=== PATIENT | female | born 1930 | race Caucasian/White ===

== ENCOUNTER → 2017-11-19 | Outpatient (CLI) | payer MEDICARE, BC ==
[~2017-11-19] MED LIST: AMLO-552 PO; AMOX-559 PO; [UNRECOGNIZED DRUG - CODE] PO
[2017-11-19 11:57] LABS: PLATELET COUNT, AUTOMATED 311 K/uL (150-450)
== END ==
LOC: LAB 11:35
PROVIDERS: ATTEND Nurse Practitioner Primary Care
DX: I10 Essential (primary) hypertension (principal)
CPT/HCPCS: 36415; 82040; 82247; 82310; 82374; 82435; 82565; 82947; 84075; 84132; 84155; 84295; 84450; 84460; 84520; 85025; 96361; 96374; 96375

== ENCOUNTER 2018-02-20 10:39 | Emergency (ER) | payer MEDICARE, BC ==
--- NOTE | 2018-02-20 10:55 | ER Report ---
History and Physical Time Seen By MD: 10:54 Hx. of Stated Complaint: PT PRESENTS WITH HX OF BECOMING DIZZY A SHORT TIME AGO, RECENTLY HAS BEEN SLEEPING ALOT HPI/ROS CHIEF COMPLAINT: Dizziness HISTORY OF PRESENT ILLNESS: 87-year-old female patient presents to emergency room with complaint of dizziness. Patient states that she's been dizzy for the last 4 days. She states that is often worse when she is ambulant. Patient states that sometimes it is worse when she stands up. Patient denies any nausea , vomiting or diarrhea. She denies having any fevers. Patient says she's not having changes in her medications. She states that she's not had any other problems. She denies any altered consciousness. Patient's friend states that this been going on, and she is concerned that she is not normally like this. REVIEW OF SYSTEMS: Respiratory: No cough, no dyspnea. Cardiovascular: No chest pain, no palpitations. Gastrointestinal: No vomiting, no abdominal pain. Musculoskeletal: No back pain. Allergies: Coded Allergies: CHRIS Inhibitors (Verified Allergy, Unknown, 02/20/18) Home Meds Active Scripts Scopolamine (Transderm-Scop) 1 Mg/3 Day Patch.td.3, 1 PATCH.72H TD Q3D Y for DIZZINESS, #3 PATCH.72H Prov:MICHAEL MARION PARTNER 02/20/18 Amlodipine Bes/Olmesartan Med (Amlodipine-Olmesartan 10-40 mg) 10 Mg-40 Mg Tablet, 1 TAB PO DAILY, #90 TAB 3 Refills Prov:XIANG DONALD DNP, PARTNER-BC 11/19/17 Past Medical/Surgical History Patient has a past medical history of hypertension, occasional alcohol use. Patient has surgical history of hysterectomy. Reviewed Nurses Notes: Yes Smoking Status: Never Smoker Hx Substance Use Disorder: No Hx Alcohol Use: Yes (OCC) Constitutional Vital Sign - Last 24 Hours 02/20/18 02/20/18 02/20/18 02/20/18 10:45 10:45 11:00 11:30 Temp 97.9 Pulse 87 Resp 20 B/P (MAP) 153/94 (113) 153/94 141/95 (110) 141/82 (101) Pulse Ox 94 O2 Delivery Room Air 02/20/18 02/20/18 02/20/18 02/20/18 11:39 12:09 12:14 12:29 Pulse 79 82 82 79 Resp 21 17 14 Pulse Ox 89 89 89 02/20/18 02/20/18 02/20/18 02/20/18 12:30 12:44 12:59 13:00 Pulse 85 87 Resp 25 13 B/P (MAP) 131/90 (104) 126/82 (97) Pulse Ox 93 93 02/20/18 02/20/18 02/20/18 02/20/18 13:14 13:19 13:24 13:29 Pulse 78 84 79 86 Resp 20 27 21 29 Pulse Ox 94 92 92 94 02/20/18 13:30 B/P (MAP) 145/92 (109) Intake and Output 02/20/18 02/20/18 02/21/18 15:00 23:00 07:00 Output Total 15 ml Balance -15 ml Physical Exam General Appearance: The patient is alert, has no immediate need for airway protection and no current signs of toxicity. ENT: Tympanic membranes are pearly-campos, auditory canals are patent, mucous membranes are moist. Respiratory: Chest is non tender, lungs are clear to auscultation. Cardiac: regular rate and rhythm Gastrointestinal: Abdomen is soft and non tender, no masses, bowel sounds normal. Musculoskeletal: Neck: Neck is supple and non tender. Extremities have full range of motion and are non tender. Skin: No rashes or lesions. Neuro: Patient alert and oriented 4, patient had a negative Trista-Hallpike. DIFFERENTIAL DIAGNOSIS: After history and physical exam differential diagnosis was considered for dizziness including but not limited to peripheral and central causes of vertigo, orthostatic causes including dehydration, and blood loss. Medical Decision Making Data Points Result Diagram: 02/20/18 1115 02/20/18 1115 Laboratory Hematology Test 02/20/18 11:15 02/20/18 12:26 Red Blood Count 4.70 M/uL (4.17-5.56) Mean Corpuscular Volume 92.8 fL (80.0-96.0) Mean Corpuscular Hemoglobin 32.3 pg (26.0-33.0) Mean Corpuscular Hemoglobin Concent 34.9 g/dL (32.0-36.0) Red Cell Distribution Width 12.9 % (11.5-14.5) Mean Platelet Volume 7.8 fL (7.2-11.1) Neutrophils (%) (Auto) 66.5 % (39.4-72.5) Lymphocytes (%) (Auto) 19.7 % (17.6-49.6) Monocytes (%) (Auto) 10.8 % (4.1-12.4) Eosinophils (%) (Auto) 1.9 % (0.4-6.7) Basophils (%) (Auto) 1.1 % (0.3-1.4) Nucleated RBC Relative Count (auto) 0.0 /100WBC Neutrophils # (Auto) 4.8 K/uL (2.0-7.4) Lymphocytes # (Auto) 1.4 K/uL (1.3-3.6) Monocytes # (Auto) 0.8 K/uL (0.3-1.0) Eosinophils # (Auto) 0.1 K/uL (0.0-0.5) Basophils # (Auto) 0.1 K/uL (0.0-0.1) Nucleated RBC Absolute Count (auto) 0.00 K/uL Sodium Level 138 mmol/L (137-145) Potassium Level 4.2 mmol/L (3.5-5.0) Chloride Level 99 mmol/L (98-107) Carbon Dioxide Level 25 mmol/L (22-31) Blood Urea Nitrogen 14 mg/dl (7-18) Creatinine 0.80 mg/dl (0.52-1.04) Glomerular Filtration Rate Calc > 60.0 Random Glucose 101 mg/dl (75-110) Calcium Level 9.8 mg/dl (8.4-10.2) Total Bilirubin 0.7 mg/dl (0.2-1.3) Aspartate Amino Transf (AST/SGOT) 21 U/L (0-35) Alanine Aminotransferase (ALT/SGPT) 17 U/L (0-56) Alkaline Phosphatase 108 U/L (0-126) Troponin I < 0.012 ng/ml Total Protein 8.4 gm/dl (6.3-8.2) Albumin 4.2 g/dl (3.5-5.0) Urine Color Yellow Urine Clarity Clear Urine pH 6.0 pH (4.8-9.5) Urine Specific [place] 1.012 Urine Protein Negative mg/dL (NEGATIVE) Urine Glucose (UA) Negative mg/dL (NEGATIVE) Urine Ketones Trace mg/dL (NEGATIVE) Urine Blood Negative (NEGATIVE) Urine Nitrite Negative (NEGATIVE) Urine Bilirubin Negative (NEGATIVE) Urine Urobilinogen Negative mg/dL (0.2-1.9) Urine Leukocyte Esterase Negative (NEGATIVE) Urine RBC 1 /HPF (0-2/HPF) Urine WBC <1 /HPF (0-5/HPF) Urine Squamous Epithelial Cells None /LPF (NONE-FEW) Urine Bacteria Negative /HPF (NONE-FEW) Urine Mucus Few /HPF (NONE-FEW) Chemistry Test 02/20/18 11:15 02/20/18 12:26 White Blood Count 7.2 k/uL (4.5-11.0) Red Blood Count 4.70 M/uL (4.17-5.56) Hemoglobin 15.2 g/dL (12.0-16.0) Hematocrit 43.6 % (34.0-47.0) Mean Corpuscular Volume 92.8 fL (80.0-96.0) Mean Corpuscular Hemoglobin 32.3 pg (26.0-33.0) Mean Corpuscular Hemoglobin Concent 34.9 g/dL (32.0-36.0) Red Cell Distribution Width 12.9 % (11.5-14.5) Platelet Count 327 K/uL (150-450) Mean Platelet Volume 7.8 fL (7.2-11.1) Neutrophils (%) (Auto) 66.5 % (39.4-72.5) Lymphocytes (%) (Auto) 19.7 % (17.6-49.6) Monocytes (%) (Auto) 10.8 % (4.1-12.4) Eosinophils (%) (Auto) 1.9 % (0.4-6.7) Basophils (%) (Auto) 1.1 % (0.3-1.4) Nucleated RBC Relative Count (auto) 0.0 /100WBC Neutrophils # (Auto) 4.8 K/uL (2.0-7.4) Lymphocytes # (Auto) 1.4 K/uL (1.3-3.6) Monocytes # (Auto) 0.8 K/uL (0.3-1.0) Eosinophils # (Auto) 0.1 K/uL (0.0-0.5) Basophils # (Auto) 0.1 K/uL (0.0-0.1) Nucleated RBC Absolute Count (auto) 0.00 K/uL Glomerular Filtration Rate Calc > 60.0 Calcium Level 9.8 mg/dl (8.4-10.2) Total Bilirubin 0.7 mg/dl (0.2-1.3) Aspartate Amino Transf (AST/SGOT) 21 U/L (0-35) Alanine Aminotransferase (ALT/SGPT) 17 U/L (0-56) Alkaline Phosphatase 108 U/L (0-126) Troponin I < 0.012 ng/ml Total Protein 8.4 gm/dl (6.3-8.2) Albumin 4.2 g/dl (3.5-5.0) Urine Color Yellow Urine Clarity Clear Urine pH 6.0 pH (4.8-9.5) Urine Specific [place] 1.012 Urine Protein Negative mg/dL (NEGATIVE) Urine Glucose (UA) Negative mg/dL (NEGATIVE) Urine Ketones Trace mg/dL (NEGATIVE) Urine Blood Negative (NEGATIVE) Urine Nitrite Negative (NEGATIVE) Urine Bilirubin Negative (NEGATIVE) Urine Urobilinogen Negative mg/dL (0.2-1.9) Urine Leukocyte Esterase Negative (NEGATIVE) Urine RBC 1 /HPF (0-2/HPF) Urine WBC <1 /HPF (0-5/HPF) Urine Squamous Epithelial Cells None /LPF (NONE-FEW) Urine Bacteria Negative /HPF (NONE-FEW) Urine Mucus Few /HPF (NONE-FEW) Urinalysis Test 02/20/18 12:26 Urine Color Yellow Urine Clarity Clear Urine pH 6.0 pH (4.8-9.5) Urine Specific [place] 1.012 Urine Protein Negative mg/dL (NEGATIVE) Urine Glucose (UA) Negative mg/dL (NEGATIVE) Urine Ketones Trace mg/dL (NEGATIVE) Urine Blood Negative (NEGATIVE) Urine Nitrite Negative (NEGATIVE) Urine Bilirubin Negative (NEGATIVE) Urine Urobilinogen Negative mg/dL (0.2-1.9) Urine Leukocyte Esterase Negative (NEGATIVE) Urine RBC 1 /HPF (0-2/HPF) Urine WBC <1 /HPF (0-5/HPF) Urine Squamous Epithelial Cells None /LPF (NONE-FEW) Urine Bacteria Negative /HPF (NONE-FEW) Urine Mucus Few /HPF (NONE-FEW) EKG/Imaging EKG Interpretation 12 lead EKG: Rhythm: normal sinus rhythm [place]: normal QRS: normal ST segments: normal Imaging Examination: CHEST PA AND LAT Comparison: 09/18/2016 History: dizziness Findings: Mild chronic hyperexpansion and interstitial thickening. No new or enlarging consolidation, nodule, or evidence of acute peribronchial inflammation. No pneumothorax, edema, or effusion. Cardiac silhouette size is within normal limits and unchanged. Thoracic aortic atherosclerosis. Thoracolumbar scoliosis as before. IMPRESSION: Unchanged chest with no evidence of acute cardiopulmonary disease. Report Dictated By: Manuelito Mcdowell MD at 02/20/2018 12:32 PM Report E-Signed By: Manuelito Mcdowell MD at 02/20/2018 12:33 PM EXAMINATION: CT Head without intravenous contrast HISTORY: Dizziness. TECHNIQUE: Axial images were obtained from the skull base to the vertex without intravenous contrast. Sagittal and coronal reformatted images are also submitted. One of the following dose optimization techniques was utilized in the performance of this exam: Automated exposure control; adjustment of the mA and/ or kV according to the patient's size; or use of an iterative reconstruction technique. Specific details can be referenced in the facility's radiology CT exam operational policy. COMPARISON: 09/18/2016 FINDINGS: Brain volume: Mild generalized volume loss. Ventricles: Negative. Acute ischemic changes: None. Hemorrhage: None. Masses / edema: None. Campos-white: Negative. White matter: Stable mild to moderate chronic microvascular ischemic changes. Vessels: Negative. Extra-axial: Negative. Calvarium / skull base: Negative. Visualized sinuses / orbits: Extensive mucosal thickening in the paranasal sinuses with complete opacification of the right sphenoid sinus. IMPRESSION: 1. No acute intracranial abnormality. 2. Extensive mucosal thickening in the paranasal sinuses with complete opacification of the right sphenoid sinus. Report Dictated By: Ez Hannah MD at 02/20/2018 12:14 PM Report E-Signed By: Ez Hannah MD at 02/20/2018 12:17 PM ED Course/Re-evaluation ED Course Patient is admitted to examined, history and physical were obtained. Differential diagnoses were considered. On examination lungs are clear, heart was regular. A CBC, CMP, urinalysis, EKG, chest x-ray, CT scan of the head was done. The lab results were unremarkable, EKG showed a normal sinus rhythm with a right bundle branch block, CT scan of the head and chest x-ray were negative. I discussed the findings with the patient and her friend. I believe the dizziness is likely related to perhaps a viral infection of the labyrinth, however the labs to look normal. We will go ahead and try a scopolamine patch. I do have concerns with the patient's age that she may have some adverse reactions. I did discuss this with the patient. She is to remove the patch if she has any problems. She is return to emergency room if her condition worsens. She is follow-up with her primary care provider next week. Patient and her friend both verbalized understanding and agreement with plan. Decision to Disposition Date: Feb 20, 2018 Decision to Disposition Time: 13:21 Depart Departure Latest Vital Signs Vital Signs Date Time Temp Pulse Resp B/P (MAP) Pulse Ox O2 Delivery O2 Flow Rate FiO2 02/20/18 13:30 145/92 (109) 02/20/18 13:29 86 29 94 02/20/18 10:45 97.9 Room Air Impression: Primary Impression: Dizziness Condition: Improved Disposition: HOME OR SELF-CARE New Scripts Scopolamine (Transderm-Scop) 1 Mg/3 Day Patch.td.3 1 PATCH.72H TD Q3D Y for DIZZINESS, #3 PATCH.72H Prov: MICHAEL MARION 02/20/18 Patient Instructions: Dizziness (ED) Additional Instructions: Return to the ER if condition worsens. Increase fluid intake. Follow up with your primary care provider in the next week. No alcohol while taking the medication. Return to the ER if condition worsens. If you are feeling funny with the medication take off the patch and do not replace. MICHAEL MARION Feb 20, 2018 10:55
--- NOTE | 2018-02-20 11:02 | EKG ---
FACILITY: [facility] - [place] PATIENT NAME: MAGDA GONZALES : [id number] MR: [id number] V: [id number] EXAM DATE: ORDERING PHYSICIAN: CAROL MALONE TECHNOLOGIST: Ankit Corona Reason : Blood Pressure : / mmHG Vent. Rate : 082 BPM Atrial Rate : 082 BPM P-R Int : 158 ms QRS Dur : 078 ms QT Int : 366 ms P-R-T Axes : 043 -26 057 degrees QTc Int : 427 ms Sinus rhythm Left axis Poor R wave progression anteriorly Nonspecific T wave findings anterior leads Abnormal ECG Confirmed by ARACELI GARCIA ([id number] on 02/20/2018 4:18:04 PM Referred By: Confirmed By:ARACELI GARCIA
[2018-02-20 11:27] LABS: PLATELET COUNT, AUTOMATED 327 K/uL (150-450)
[2018-02-20] MEDS ORDERED: LORazepam 2 MG/ML VIAL IVP ONE (11:40)
--- NOTE | 2018-02-20 12:21 | RADIOLOGY IMAGING REPORT ---
[place] [facility] [place] NAME: Jaye Henderson : 1930 MR: [id number] V: [id number] EXAM DATE: ORDERING PHYSICIAN: MICHAEL MARION TECHNOLOGIST: [place] [facility] [place] Jaye Henderson : 1930 Visit/Account:[id number] Date of Sevice: 02/20/2018 EXAMINATION: CT Head without intravenous contrast HISTORY: Dizziness. TECHNIQUE: Axial images were obtained from the skull base to the vertex without intravenous contrast . Sagittal and coronal reformatted images are also submitted. One of the following dose optimization techniques was utilized in the performance of this exam: Autom ated exposure control; adjustment of the mA and/or kV according to the patient's size; or use of an i terative reconstruction technique. Specific details can be referenced in the facility's radiology C T exam operational policy. COMPARISON: 09/18/2016 FINDINGS: Brain volume: Mild generalized volume loss. Ventricles: Negative. Acute ischemic changes: None. Hemorrhage: None. Masses / edema: None. Campos-white: Negative. White matter: Stable mild to moderate chronic microvascular ischemic changes. Vessels: Negative. Extra-axial: Negative. Calvarium / skull base: Negative. Visualized sinuses / orbits: Extensive mucosal thickening in the paranasal sinuses with complete opa cification of the right sphenoid sinus. IMPRESSION: 1. No acute intracranial abnormality. 2. Extensive mucosal thickening in the paranasal sinuses with complete opacification of the right sp henoid sinus. Report Dictated By: Ez Hannah MD at 02/20/2018 12:14 PM Report E-Signed By: Ez Hannah MD at 02/20/2018 12:17 PM [id number]
--- NOTE | 2018-02-20 12:37 | RADIOLOGY IMAGING REPORT ---
[place] [facility] [place] Jaye Henderson : 1930 MR: [id number] V: [id number] EXAM DATE: ORDERING PHYSICIAN: MICHAEL MARION TECHNOLOGIST: Location: [facility] Patient: Jaye Henderson : 1930 Visit/Account:[id number] Date of Sevice: 02/20/2018 Examination: CHEST PA AND LAT Comparison: 09/18/2016 History: dizziness Findings: Mild chronic hyperexpansion and interstitial thickening. No new or enlarging consolidation, nodule, or evidence of acute peribronchial inflammation. No pneumothorax, edema, or effusion. Cardia c silhouette size is within normal limits and unchanged. Thoracic aortic atherosclerosis. Thoracolumb ar scoliosis as before. IMPRESSION: Unchanged chest with no evidence of acute cardiopulmonary disease. Report Dictated By: Manuelito Mcdowell MD at 02/20/2018 12:32 PM Report E-Signed By: Manuelito Mcdowell MD at 02/20/2018 12:33 PM WSN:[id number]
[2018-02-20] MEDS ORDERED: SCOPOLAMINE 1.5 MG PATCH TD ONE (13:20)
[2018-02-20] MEDS ORDERED: SCOP1PAT2 TD (13:22)
[2018-02-20 13:30] VITALS: BP 145/92
== END 2018-02-20 13:30 | disposition home or self-care (01) ==
LOC: ER 10:52
DX: R42 Dizziness and giddiness (principal); I45.10 Unspecified right bundle-branch block; R94.31 Abnormal electrocardiogram [ECG] [EKG]
CPT/HCPCS: 70450; 71046; 81001; 84484; 85025; 93005; 96365; 99284; A9270; J2060; 82040; 82247; 82310; 82374; 82435; 82565; 82947; 84075; 84132; 84155; 84295; 84450; 84460; 84520; A4353